=== PATIENT | male | born 1965 | race Caucasian/White ===

== ENCOUNTER 2021-01-25 11:45 | Emergency (ER) | payer SELFPAY ==
[~2021-01-25] VITALS: Ht 177.8 cm; Wt 90.9 kg
[~2021-01-25 11:45] MED LIST: IBUP-1984 PO
[2021-01-25 12:25] VITALS: BP 133/78
[2021-01-25] MEDS ORDERED: ALBU6.7H9 INH (14:00)
== END 2021-01-25 14:28 | disposition home or self-care (01) ==
LOC: ER 11:46
DX: J06.9 Acute upper respiratory infection, unspecified (principal); R53.83 Other fatigue; J45.909 Unspecified asthma, uncomplicated; Z20.822 Contact with and (suspected) exposure to COVID-19
CPT/HCPCS: 87635; 99283; C9803